=== PATIENT | male | born 1960 | race Caucasian/White ===

== ENCOUNTER 2021-05-03 04:55 | Emergency (ER) | payer MEDICARE ==
[~2021-05-03] VITALS: Ht 167.6 cm; Wt 62.0 kg
[~2021-05-03 04:55] MED LIST: BACTRIM DS1 TAB PO; CEPHALEXIN500 MG PO; FENTANYL50 MCG/HR TD; FLEXERIL5 MG PO; GABAPENTIN400 M2 PO; LORTAB 1010 MG PO; NO HOME MEDS; OXYCODONE HCL15 MG PO
[2021-05-03 05:19] LABS: IMMATURE GRANULOCYTES 0.3 % (0.0-5.0); MEAN CELL VOLUME 93.2 fL CALC (80.0-100.0); MEAN CORPUSCULAR HGB CONC 33.3 g/dL CAL (32.0-36.0); NEUT# 6.98 thou/uL (1.82-7.42); RED BLOOD COUNT 4.87 mill/uL (4.70-6.10); RED CELL DISTRI WIDTH 12.3 % (11.5-15.5)
[2021-05-03 05:22] LABS: HEMATOCRIT 45.4 % (39.0-50.0); HEMOGLOBIN 15.1 g/dl (14.0-18.0)
[2021-05-03 05:31] LABS: ALBUMIN 4.2 g/dL (3.2-5.0); ALKALINE PHOSPHATASE 90 u/l (38-126); ANION GAP 12 (6-22 (CALC)); BILIRUBIN, TOTAL 1.1 mg/dL (0.0-1.4); BUN 20 mg/dL (9-20); BUN/CREATININE RATIO 17 (12-20 (CALC)); CARBON DIOXIDE 25 mmol/l (22-30); CHLORIDE 102 mmol/l (95-108); CREATININE 1.2 mg/dL (0.7-1.3); GFR > 60 ML/MIN (>=60 (CALC)); GFR FOR AFR.AMER. > 60 ML/MIN (>=60 (CALC)); SGOT/AST 27 u/l (17-59); SODIUM 136 mmol/l (137-146); TOTAL PROTEIN 7.6 g/dL (6.3-8.2)
[2021-05-03 06:30] VITALS: BP 137/95
== END 2021-05-03 06:48 | disposition home or self-care (01) ==
LOC: ED 04:55
PROVIDERS: Family Medicine
DX: S68.617A Complete traumatic transphalangeal amputation of left little finger, initial encounter (principal); S68.611A Complete traumatic transphalangeal amputation of left index finger, initial encounter; F17.200 Nicotine dependence, unspecified, uncomplicated; W21.89XA Striking against or struck by other sports equipment, initial encounter; Y93.89 Activity, other specified; Y92.821 Forest as the place of occurrence of the external cause